=== PATIENT | male | born 1975 | race Two or more races ===

== ENCOUNTER → 2021-04-12 | Emergency (ER) | payer OTHER | END | disposition left against medical advice (07) | LOC: ER 22:34 | DX: Z53.21 Procedure and treatment not carried out due to patient leaving prior to being seen by health care provider (principal) ==

== ENCOUNTER 2022-12-31 18:00 | Emergency (ER) | payer OTHER ==
[~2022-12-31] VITALS: Ht 172.7 cm; Wt 72.6 kg
[2022-12-31] MEDS ORDERED: GLUMETZA1000 MG PO (18:34)
[2022-12-31] MEDS ORDERED: LIPITOR40 M1 PO (18:34)
[2022-12-31 20:49] LABS: HEMATOCRIT 44.2 % (39.0-48.0); HEMOGLOBIN 14.8 g/dL (13-16.00); MEAN CELL VOLUME 85.4 fL (80.0-100.00); MEAN CORPUSCULAR HEMOGLOBIN 28.6 pg (27.00-32.0); MEAN CORPUSCULAR HGB CONC 33.5 g/dl (32.0-36.0); PLATELET COUNT 268 K/uL (150-450); RED BLOOD COUNT 5.18 M/uL (4.00-6.00); RED CELL DISTRIBUTION WIDTH 13.5 % (11.5-14.5)
[2022-12-31 20:50] LABS: URINE APPEARANCE Clear; URINE BILIRRUBIN Negative (NEGATIVE); URINE BLOOD Negative; URINE COLOR Yellow; URINE LEUKOCYTE Negative; URINE NITRATE Negative; URINE PROTEIN Negative (NEGATIVE); URINE UROBILINOGEN 0.2 E.U./dl
[2022-12-31 20:58] LABS: URINE WBC 2.4 uL (0.0-23.2)
[2022-12-31 21:00] LABS: URINE EPITHELIAL CELLS 0.4 uL (0.0-38.8); URINE GLUCOSE >=1000 MG/DL (NEGATIVE); URINE RBC 0.7 uL (0.0-20.8)
[2022-12-31 21:14] LABS: ALBUMIN 3.5 gm/dL (3.4-5.0); BILIRUBIN TOTAL 0.31 mg/dL (0.3-1.2); CALCIUM 8.8 mg/dL (8.5-10.1); CREATININE SERUM 0.89 mg/dL (0.70-1.30); GFR 92.44; GLOBULINA 4.1 G/DL (2.4-3.5); POTASSIUM 4.48 mEq/L (3.5-5.1); TOTAL PROTEIN 7.6 gm/dL (6.4-8.2)
== END 2022-12-31 22:29 | disposition home or self-care (01) ==
LOC: ER 18:00
PROVIDERS: General Practice
DX: K21.9 Gastro-esophageal reflux disease without esophagitis (principal)